=== PATIENT | female | born 1985 | race Hispanic/Latino ===

== ENCOUNTER 2017-08-29 18:40 | Emergency (ER) | payer SELFPAY | END 2017-08-29 19:12 | disposition left against medical advice (07) | LOC: ERS 18:40 | DX: Z53.21 Procedure and treatment not carried out due to patient leaving prior to being seen by health care provider (principal); F17.210 Nicotine dependence, cigarettes, uncomplicated ==

== ENCOUNTER 2018-09-16 09:59 | Emergency (ER) | payer SELFPAY ==
--- NOTE | 2018-09-16 11:34 | RAD ---
RIGHT ANKLE RADIOGRAPHS THREE VIEWS: Date: 09-16-18 Provided Clinical History: Right ankle pain status post injury. FINDINGS: There is no evidence for fracture or other acute osseous abnormality. If there is persistent clinical concern, conservative management and follow up imaging are advised. IMPRESSION: As above. POS: TAD
[2018-09-16] MEDS ORDERED: Ibuprofen 200 MG TAB ONE (12:39)
== END 2018-09-16 12:43 | disposition home or self-care (01) ==
LOC: ERS 09:59
DX: S93.401A Sprain of unspecified ligament of right ankle, initial encounter (principal); F17.210 Nicotine dependence, cigarettes, uncomplicated; W22.8XXA Striking against or struck by other objects, initial encounter

== ENCOUNTER 2019-09-19 17:20 | Emergency (ER) | payer SELFPAY | END 2019-09-19 17:50 | disposition home or self-care (01) | LOC: ERS 17:20 | DX: L25.9 Unspecified contact dermatitis, unspecified cause (principal); F17.210 Nicotine dependence, cigarettes, uncomplicated | CPT/HCPCS: 99281 ==

== ENCOUNTER 2019-09-22 18:00 | Emergency (ER) | payer SELFPAY ==
[2019-09-22] MEDS ORDERED: Ibuprofen 200 MG TAB ONE (19:14)
[2019-09-22] MEDS ORDERED: Dexamethasone 10 MG/ML VIAL ONE (19:50)
== END 2019-09-22 19:53 | disposition home or self-care (01) ==
LOC: ERS 18:00
DX: J01.90 Acute sinusitis, unspecified (principal); J06.9 Acute upper respiratory infection, unspecified; F17.210 Nicotine dependence, cigarettes, uncomplicated
CPT/HCPCS: 87081; 87430; 99282; J1100

== ENCOUNTER 2022-12-29 15:38 | Emergency (ER) | payer SELFPAY ==
[2022-12-29] MEDS ORDERED: Oxymetazoline HCl 0.05% (30 ML BOT) ONE (16:55)
[2022-12-29] MEDS ORDERED: Albuterol 2.5 MG/0.5 ML NEB ONE (16:55)
[2022-12-29] MEDS ORDERED: Albuterol 200 PUFF (6.7GM INHALER) INH SCH (17:15)
== END 2022-12-29 17:31 | disposition home or self-care (01) ==
LOC: ERS 15:38
DX: J01.90 Acute sinusitis, unspecified (principal); F17.210 Nicotine dependence, cigarettes, uncomplicated; Z20.822 Contact with and (suspected) exposure to COVID-19
CPT/HCPCS: 99283; J7611; U0003; U0005

== ENCOUNTER 2023-07-14 09:39 | Emergency (ER) | payer SELFPAY ==
[2023-07-14] MEDS ORDERED: Fluconazole 100 MG TAB ONE (10:59)
== END 2023-07-14 11:04 | disposition home or self-care (01) ==
LOC: ERS 09:39
DX: K04.7 Periapical abscess without sinus (principal); K05.00 Acute gingivitis, plaque induced; F17.210 Nicotine dependence, cigarettes, uncomplicated
CPT/HCPCS: 99282

== ENCOUNTER 2024-02-06 21:57 | Emergency (ER) | payer SELFPAY ==
[2024-02-07] MEDS ORDERED: Amoxicillin/Potassium Clav 875 MG TAB ONE (01:31)
[2024-02-07] MEDS ORDERED: Ketorolac Tromethamine 30 MG (1 mL) VIAL ONE (01:31)
== END 2024-02-07 01:55 | disposition home or self-care (01) ==
LOC: ERS 21:57
DX: K03.81 Cracked tooth (principal); R68.84 Jaw pain; F17.210 Nicotine dependence, cigarettes, uncomplicated
CPT/HCPCS: 96372; 99282; J1885